=== PATIENT | female | born 1935 ===

== ENCOUNTER 2017-03-19 20:10 | Emergency (ER) | payer MEDICARE, MEDICAID ==
[2017-03-19 20:37] VITALS: RESP 18; TEMP 97.5
[2017-03-19 21:22] LABS: BASO # 0.1 K/uL (0.0-0.2); BASO % 0.8 % (0.0-2.0); EOS # 0.2 K/uL (0.0-0.7); EOS % 2.9 % (0.0-4.0); HEMATOCRIT 41.4 % (34.0-47.0); LYMPH # 1.5 K/uL (1.0-4.3); LYMPH % 21.3 % (20.0-40.0); MEAN CELL VOLUME 88.1 fL (81.0-99.0); MEAN CORPUSCULAR HEMOGLOBIN 29.6 pg (27.0-31.0); MEAN CORPUSCULAR HGB CONC 33.6 g/dL (33.0-37.0); MEAN PLATELET VOLUME 8.5 fL (7.2-11.7); MONO # 0.6 K/uL (0.0-0.8); MONO % 8.2 % (0.0-10.0); NRBC % 0.1 % (0.0-2.0); RED CELL DISTRIBUTION WIDTH 13.1 % (11.5-14.5)
--- NOTE | 2017-03-19 21:32 | C.PDOC ---
History Of Present Illness 81 year old female presents to the emergency department with complaints of generalized weakness, dizziness, and headache since yesterday that has worsened today. Patient states she took her blood pressure at home yesterday and today and it was high both days. She notes similar symptoms in the past when her blood pressure was high and is compliant with blood pressure medications. Patient denies any fever, nausea, or diarrhea. Time Seen by Provider: 03/19/17 20:16 Chief Complaint (Nursing): Dizziness/Lightheaded History Per: Patient History/Exam Limitations: no limitations Onset/Duration Of Symptoms: Days (symptoms began yesterday ), Worse Since (today ) Current Symptoms Are (Timing): Still Present Recent travel outside of the [place]: No Past Medical History Reviewed: Historical Data, Nursing Documentation, Vital Signs Vital Signs: Last Vital Signs Temp 97.5 F L 03/19/17 20:23 Pulse 57 L 03/19/17 23:01 Resp 18 03/19/17 23:01 BP 164/83 H 03/19/17 23:01 Pulse Ox 100 03/25/17 00:26 - Medical History PMH: HTN, Hypercholesterolemia Family History: States: Other Other Family History: Non-contributory. - Social History Hx Alcohol Use: No Hx Substance Use: No Review Of Systems Except As Marked, All Systems Reviewed And Found Negative. Constitutional: Positive for: Weakness (generalized weakness) Neurological: Positive for: Headache, Dizziness Physical Exam - Physical Exam Appears: Well, Non-toxic, No Acute Distress Skin: Warm, Dry Head: Atraumatic Eye(s): bilateral: Normal Inspection, PERRL, EOMI Ear(s): Bilateral: Normal Oral Mucosa: Moist Neck: Supple Cardiovascular: Rhythm Regular, Other (Sinus bradycardia 57 bpm) Respiratory: Normal Breath Sounds, No Rhonchi, No Wheezing Gastrointestinal/Abdominal: Soft, No Tenderness, No Distention, No Guarding, No Rebound Pulses: Left Radial: Normal, Right Radial: Normal Neurological/Psych: Oriented x3, Normal Cranial Nerves, No Cerebellar Signs, Normal Motor, Normal Sensation, Other (no focal deficits) Gait: Steady ED Course And Treatment - Laboratory Results Result Diagrams: 03/19/17 21:18 03/19/17 21:18 ECG Rhythm: Sinus Bradycardia (57 bpm ) O2 Sat by Pulse Oximetry: 100 (room air ) - CT Scan/US CT Head Other Rad Studies (CT/US): Read By Radiologist, Radiology Report Reviewed CT/US Interpretation: EXAM: CT Head Without Intravenous Contrast. CLINICAL HISTORY: 81 years old, female; Pain; Headache; Headache not specified. TECHNIQUE: Axial computed tomography images of the head/brain without intravenous contrast. This CT exam. was performed using one or more of the following dose reduction techniques: automated exposure. control, adjustment of the mA and/or kV according to patient size, and/or use of iterative. reconstruction technique. Coronal and sagittal reformatted images were created and reviewed. COMPARISON: No relevant prior studies available. FINDINGS: Brain: Bilateral white matter changes most consistent with chronic ischemic small vessel changes. Atrophy. Vascular calcification. No hemorrhage. No edema. Ventricles: No hydrocephalus. Bones: Skull is intact. Sinuses: Partial visualization of mild ethmoid sinus mucosal thickening. Evidence of a mucous. retention cyst or polyp in the right sphenoid sinus. No acute sinusitis. Mastoid air cells: No mastoid effusion. IMPRESSION: No CT evidence of acute intracranial abnormality. Chronic changes as above Medical Decision Making Medical Decision Makinpm BP trending down. the pt reports feeling better and she is requesting to go home. she is pleasant, appears well, in no distress. Disposition - Disposition Disposition: HOME/ ROUTINE Disposition Time: 23:11 Condition: IMPROVED Additional Instructions: Please follow up with your doctor in the morning. Return to the ER for any worsening symptoms or for any other concerns. Forms: Gen Discharge Inst Chadian, [employer] (Frisian) Print Language: [place] - Clinical Impression Clinical Impression: Hypertension, Headache - Scribe Statement The provider has reviewed the documentation as recorded by the Tiffanyibselene Shah All medical record entries made by the Tiffanyibselene were at my direction and personally dictated by me. I have reviewed the chart and agree that the record accurately reflects my personal performance of the history, physical exam, medical decision making, and the department course for this patient. I have also personally directed, reviewed, and agree with the discharge instructions and disposition.
[2017-03-19 21:35] LABS: CHLORIDE 93 mmol/L (98-107)
[2017-03-19 21:36] LABS: SODIUM 132 mmol/L (132-148)
[2017-03-19 21:37] LABS: POTASSIUM 4.3 mmol/L (3.6-5.2)
[2017-03-19 21:39] LABS: ALB/GLOB RATIO 1.1 (1.0-2.1); ALKALINE PHOSPHATASE 92 U/L (38-126); ALT/SGPT 25 U/L (9-52); AST/SGOT 23 U/L (14-36); BILIRUBIN,TOTAL 0.6 mg/dL (0.2-1.3); BLOOD UREA NITROGEN 17 mg/dL (7-17); CARBON DIOXIDE 26 mmol/L (22-30); GFR AFRICAN-AMERICAN > 60; GLUCOSE,RANDOM 84 mg/dL (65-105); TOTAL PROTEIN 7.9 g/dL (6.3-8.3)
[2017-03-19 21:40] LABS: CALCIUM 9.1 mg/dl (8.6-10.4)
[2017-03-19 21:50] LABS: URINE BILIRUBIN NEGATIVE (NEGATIVE); URINE BLOOD NEGATIVE (NEGATIVE); URINE COLOR Colorless (YELLOW); URINE GLUCOSE (UA) NORMAL (Normal); URINE KETONE NEGATIVE (NEGATIVE); URINE LEUKOCYTE ESTERASE NEG Leu/uL (Negative); URINE PROTEIN NEGATIVE (NEGATIVE); URINE UROBILINOGEN NORMAL mg/dL (0.2-1.0); WBC URINE < 1 /hpf (0-5)
--- NOTE | 2017-03-19 22:28 | CT ---
EXAM: CT Head Without Intravenous Contrast CLINICAL HISTORY: 81 years old, female; Pain; Headache; Headache not specified TECHNIQUE: Axial computed tomography images of the head/brain without intravenous contrast. This CT exam was performed using one or more of the following dose reduction techniques: automated exposure control, adjustment of the mA and/or kV according to patient size, and/or use of iterative reconstruction technique. Coronal and sagittal reformatted images were created and reviewed. COMPARISON: No relevant prior studies available. FINDINGS: Brain: Bilateral white matter changes most consistent with chronic ischemic small vessel changes. Atrophy. Vascular calcification. No hemorrhage. No edema. Ventricles: No hydrocephalus. Bones: Skull is intact. Sinuses: Partial visualization of mild ethmoid sinus mucosal thickening. Evidence of a mucous retention cyst or polyp in the right sphenoid sinus. No acute sinusitis. Mastoid air cells: No mastoid effusion. IMPRESSION: No CT evidence of acute intracranial abnormality. Chronic changes as above.
[2017-03-19] MEDS ORDERED: Labetalol 5 mg/ml Inj 20ML IVP STA (22:33)
[2017-03-19 23:01] VITALS: BP 164/83; PULSE 57
[2017-03-19 23:02] VITALS: O2SAT 100
--- NOTE | 2017-03-20 09:18 | RAD ---
HISTORY: dizzy COMPARISON: No prior. FINDINGS: LUNGS: No active pulmonary disease. PLEURA: No significant pleural effusion identified, no pneumothorax apparent. CARDIOVASCULAR: Normal. OSSEOUS STRUCTURES: No significant abnormalities. VISUALIZED UPPER ABDOMEN: Normal. OTHER FINDINGS: None. IMPRESSION: No active disease.
--- NOTE | 2017-03-20 13:45 | CARD ---
APPROVED REPORT EKG Measurement Heart [id number] <Conclusion> Sinus bradycardia Otherwise normal ECG
== END 2017-03-19 23:18 | disposition home or self-care (01) ==
LOC: C.ER 20:10
DX: I10 Essential (primary) hypertension (principal); R51 Headache